=== PATIENT | female | born 1990 | race Hispanic/Latino ===

== ENCOUNTER 2022-07-11 18:09 | Emergency (ER) | payer SELFPAY ==
--- NOTE | 2022-07-12 04:48 | Emergency Department Report ---
ED General Adult HPI - General Chief complaint: Medical Clearance Stated complaint: NEED SEIZURE MEDICINE Time Seen by Provider: 07/12/22 04:44 Source: patient, EMS Mode of arrival: Stretcher Limitations: No Limitations - History of Present Illness Initial comments: Patient 31-year-old female history of seizures seizures controlled by Keppra 750 mg p.o. twice a day. Patient states out of medication x3 days she is traveling from [place]. Patient denies ordered anesthesia denies fevers or chills no other complaint at this time. Patient appears well-hydrated well-nourished and nontoxic. - Related Data Home Medications Medication Instructions Recorded Confirmed Last Taken Ethosuximide [Zarontin] 250 mg PO BID 02/21/14 02/21/14 02/21/14 09:00 250 mg Ethosuximide [Zarontin] 500 mg PO QPM 02/21/14 02/21/14 02/21/14 19:00 500 Vit-Fe Fumar-FA [ 1 each PO QDAY 02/21/14 02/21/14 02/21/14 05:00 Vitamin] Previous Rx's Medication Instructions Recorded Last Taken Type Ibuprofen [Motrin] 600 mg PO Q8H PRN #40 tablet 02/02/16 Unknown Rx Sulfamethoxazole/Trimethoprim 1 each PO BID #20 tablet 02/02/16 Unknown Rx [Bactrim DS TAB] traMADoL [Ultram] 50 mg PO Q6HR PRN #20 tablet 02/02/16 Unknown Rx levETIRAcetam [Keppra TAB] 0.5 tab PO QPM #30 tab 07/12/22 Unknown Rx levETIRAcetam [Keppra TAB] 1,000 mg PO QAM #30 tab 07/12/22 Unknown Rx Allergies Allergy/AdvReac Type Severity Reaction Status Date / Time No Known Allergies Allergy Verified 07/11/22 18:17 ED Review of Systems ROS: Stated complaint: NEED SEIZURE MEDICINE Other details as noted in HPI Constitutional: denies: chills, fever Eyes: denies: eye pain, eye discharge, vision change ENT: denies: ear pain, throat pain Respiratory: denies: cough, shortness of breath, wheezing Cardiovascular: denies: chest pain, palpitations Endocrine: no symptoms reported Gastrointestinal: denies: abdominal pain, nausea, diarrhea Genitourinary: denies: urgency, dysuria, discharge Musculoskeletal: denies: back pain, joint swelling, arthralgia Skin: denies: rash, lesions Neurological: denies: headache, weakness, paresthesias Psychiatric: denies: anxiety, depression Hematological/Lymphatic: denies: easy bleeding, easy bruising ED Past Medical Hx - Past Medical History Hx Hypertension: No Hx Diabetes: No Hx Deep Vein Thrombosis: No Hx Renal Disease: No Hx Sickle Cell Disease: No Hx Seizures: Yes (medication for seizure (Keppra)) Hx Psychiatric Treatment: Yes (bipolar) Hx Asthma: No Hx HIV: No - Social History Smoking Status: Never Smoker Substance Use Type: None - Medications Home Medications: Home Medications Medication Instructions Recorded Confirmed Last Taken Type Ethosuximide [Zarontin] 250 mg PO BID 02/21/14 02/21/14 02/21/14 09:00 History 250 mg Ethosuximide [Zarontin] 500 mg PO QPM 02/21/14 02/21/14 02/21/14 19:00 History 500 Vit-Fe Fumar-FA [ 1 each PO QDAY 02/21/14 02/21/14 02/21/14 05:00 History Vitamin] Ibuprofen [Motrin] 600 mg PO Q8H PRN #40 tablet 02/02/16 Unknown Rx Sulfamethoxazole/Trimethoprim 1 each PO BID #20 tablet 02/02/16 Unknown Rx [Bactrim DS TAB] traMADoL [Ultram] 50 mg PO Q6HR PRN #20 tablet 02/02/16 Unknown Rx levETIRAcetam [Keppra TAB] 0.5 tab PO QPM #30 tab 07/12/22 Unknown Rx levETIRAcetam [Keppra TAB] 1,000 mg PO QAM #30 tab 07/12/22 Unknown Rx ED Physical Exam - General Limitations: No Limitations General appearance: alert, in no apparent distress - Head Head exam: Present: atraumatic, normocephalic - Eye Eye exam: Present: normal appearance, PERRL, EOMI Pupils: Present: normal accommodation - ENT ENT exam: Present: mucous membranes moist - Neck Neck exam: Present: normal inspection, full ROM. Absent: tenderness, lymphadenopathy - Respiratory Respiratory exam: Present: normal lung sounds bilaterally. Absent: respiratory distress, wheezes, stridor, chest wall tenderness - Cardiovascular Cardiovascular Exam: Present: regular rate, normal rhythm, normal heart sounds - GI/Abdominal GI/Abdominal exam: Present: soft, normal bowel sounds. Absent: distended, tenderness - Rectal Rectal exam: Present: deferred - Extremities Exam Extremities exam: Present: normal inspection, full ROM, normal capillary refill. Absent: tenderness - Back Exam Back exam: Present: normal inspection, full ROM. Absent: CVA tenderness (R), CVA tenderness (L) - Neurological Exam Neurological exam: Present: alert, oriented X3, CN II-XII intact, normal gait - Expanded Neurological Exam Expanded Patient oriented to: Present: person, place, time Speech: Present: fluid speech Motor strength exam: RUE: 5, LUE: 5, RLE: 5, LLE: 5 Best Eye Response (Sidney): (4) open spontaneously Best Motor Response (Aries): (6) obeys commands Best Verbal Response (Aries): (5) oriented [place] Total: 15 - Psychiatric Psychiatric exam: Present: normal affect, normal mood - Skin Skin exam: Present: warm, dry, intact, normal color. Absent: rash ED Course Vital Signs 07/11/22 07/12/22 18:14 01:44 Temperature 98.1 F Pulse Rate 80 70 Respiratory 14 14 Rate Blood Pressure 116/80 113/73 [Left] O2 Sat by Pulse 99 100 Oximetry ED Medical Decision Making - Medical Decision Making Medication refill as requested. Patient is currently alert oriented x3 ambulatory with steady gait and with no acute distress. Mentation is appropriate. We will refill Keppra, follow-up with primary care doctor in 2 to 3 days return to emergency department should symptoms develop or worsen. Critical care attestation.: If time is entered above; I have spent that time in minutes in the direct care of this critically ill patient, excluding procedure time. ED Disposition Clinical Impression: Medication refill Disposition: HOME / SELF CARE / HOMELESS Is pt being admited?: No Does the pt Need Aspirin: No Condition: Stable Instructions: Medicine Refill at the Emergency Department Additional Instructions: Take medications as prescribed, follow-up with primary care doctor in 2 to 3 days. Prescriptions: levETIRAcetam [Keppra TAB] 0.5 tab PO QPM #30 tab levETIRAcetam [Keppra TAB] 1,000 mg PO QAM #30 tab Referrals: ISA,ANSLEY M, MD [Referring] - 3-5 Days Forms: Work/School Release Form(ED) Time of Disposition: 04:52
[2022-07-12 04:52] VITALS: BP 137/65
[2022-07-12] MEDS ORDERED: levETIRAcetam 500 MG TAB PO ONE (04:58)
== END 2022-07-12 05:39 | disposition home or self-care (01) ==
LOC: ED 18:09
DX: R56.9 Unspecified convulsions (principal); Z76.0 Encounter for issue of repeat prescription
CPT/HCPCS: 99282